=== PATIENT | male | born 1955 | race African-American/Black ===

== ENCOUNTER 2017-03-06 14:20 | Inpatient (IN) | payer OTHER ==
--- NOTE | ~2017-03-06 | PA ---
Unit #: [id number] #: [id number] Patient: ABBE FLORES [id number] [facility] [address] [place] [address] [id number] MR#: [id number] NAME: ABBE FLORES ROOM: [facility] Age: 61 Sex: M Admission Date: 03/06/2017 : 1955 Date of Assessment: 03/07/2017 Attending Physician: Francisco Santana M.D. Admitting Physician: Francisco Santana M.D. Primary Care Physician: Primary Care Physician No PSYCHIATRIC ASSESSMENT DATE OF ASSESSMENT 03/07/2017. INFORMANTS The patient, reliable; OLOP, reliable. CHIEF COMPLAINT Alcohol and heroin use and suicidal ideation. HISTORY OF PRESENT ILLNESS Mr. Flores is a 61-year-old man with a history of polysubstance dependence. He reports that "life is not going right" and he is relapsing on alcohol and drugs. He says that his relapse on alcohol, "set everything off" and he has been drinking a pint of scott daily with the last drink the day prior to admission. He has also begun using heroin IV and has been using daily. He was unable to contract for safety and was admitted for stabilization. PAST PSYCHIATRIC HISTORY Last admission in 06/2016 as well as previous admission at [facility]. FAMILY PSYCHIATRIC HISTORY None reported. SOCIAL HISTORY The patient reported no history of childhood abuse or neglect. He has been incarcerated in the past for charges including robbery and manslaughter. He is currently erratically housed and occasionally stays at homeless shelters. He has minimal psychosocial support. PAST MEDICAL HISTORY Hypertension, low back pain, and hepatitis C. MEDICATIONS Please see MAR. ALLERGIES Aspirin. SUBSTANCE USE HISTORY As noted, the patient has an extensive history of chemical dependence and is currently abusing both alcohol and opioids. Unit #: [id number] #: [id number] Patient: ABBE FLORES MENTAL STATUS EXAMINATION Mr. Flores presented as a disheveled man, who appeared older than his stated age. He stood 5 feet 7 inches tall and weighed 145 pounds. Vital signs; temperature 97.7, pulse 60, respirations 17, and blood pressure 150/86. His speech was soft and spontaneous, but he was fully cooperative with the examination. Musculoskeletal examination demonstrated psychomotor agitation. His mood was depressed and irritable with a congruent affect. He was alert and fully oriented. His memory and concentration were fair to good. His thought processes were logical with no active psychosis. He reported dysphoria and suicidal ideation, but contracted for safety in the hospital. Insight and judgment were fair. Fund of knowledge and abstraction, fair. ASSETS AND LIABILITIES The patient is familiar with local resources and is presenting voluntarily for treatment. Liabilities include unstable housing, unstable support, and relapse. ADMITTING DIAGNOSES AXIS I: Alcohol dependence withdrawal, uncomplicated, F10.230; history of opioid dependence; substance-induced mood disorder, depressed. AXIS II: No diagnosis. AXIS III: Hypertension, active alcohol withdrawal. AXIS IV: AXIS V: PSYCHIATRIC PLAN The patient was admitted and placed on suicide precautions and the alcohol detox protocol. His home medications will be explored and restarted. He will have a physical examination and baseline laboratory studies. TREATMENT GOALS Resolution of intoxication, establishment of sobriety, resolution of SI, improvement in insight, and improvement in coping skills. DISCHARGE PLANNING Follow up with community mental health, chemical dependence, and psychiatric treatment resources. ESTIMATED LENGTH OF STAY 5 days. Dictated by... Francisco Santana M.D. [facility]/setwart TD: 03/07/2017 19:58 JOB #: [id number] Unit #: [id number] #: [id number] Patient: ABBE FLORES PSYCHIATRIC ASSESSMENT Page 1 of 1 X Francisco Santana MD X PSYCHIATRIC ASSESSMENT
--- NOTE | ~2017-03-06 | PN ---
Unit #: [id number] #: [id number] Patient: ABBE SHARMA [id number] [facility] [address] [place] [address] [id number] MR#: [id number] NAME: ABBE SHARMA ROOM: [facility] Age: 61 Sex: M Admission Date: 03/06/2017 : 1955 Attending Physician: Francisco Santana M.D. Admitting Physician: Francisco Santana M.D. Primary Care Physician: Primary Care Physician Leanna REES PROGRESS NOTES DATE OF SERVICE 03/08/2017 DISCUSSION Mr. Sharma continues to have active detox symptoms today. His mood is dysphoric and irritable with a congruent affect. He is alert and fully oriented with no psychosis. He continues to report some SI. ASSESSMENT Alcohol dependence, major depression. PLAN Continue current treatment plan. Dictated by... Jemma Galdamez/michelle TD: 03/09/2017 04:18 JOB #: [id number] [facility] PROGRESS NOTES Page 1 of 1 X Francisco Santana MD PROGRESS NOTE
--- NOTE | ~2017-03-06 | PN ---
Unit #: [id number] #: [id number] Patient: ABBE FLORES [id number] [facility] [address] [place] [address] [id number] I MR#: [id number] NAME: ABBE FLORES ROOM: [facility] Age: 61 Sex: M Admission Date: 03/06/2017 : 1955 Attending Physician: Francisco Santana M.D. Admitting Physician: Francisco Santana M.D. Primary Care Physician: Primary Care Physician Leanna REES PROGRESS NOTES DATE 03/09/2017 DISCUSSION Mr. Flores continues to have active withdrawal symptoms today. His mood is depressed with a downcast affect. He is alert and fully oriented with no psychosis. He continues to endorse suicidal ideation. ASSESSMENT 1. Alcohol dependence. 2. Opiate dependence. 3. Substance-induced mood disorder. PLAN Continue current treatment plan. Dictated by... Francisco Santana M.D. [facility]/bzg TD: 03/10/2017 08:36 JOB #: [id number] [facility] PROGRESS NOTES Page 1 of 1 X Francisco Santana MD PROGRESS NOTE
--- NOTE | ~2017-03-06 | PN ---
Unit #: [id number] #: [id number] Patient: ABBE FLORES [id number] [facility] [address] [place] [address] [id number] I MR#: [id number] NAME: ABBE FLORES ROOM: [facility]0 Age: 61 Sex: M Admission Date: 03/06/2017 : 1955 Attending Physician: Francisco Santana M.D. Admitting Physician: Francisco Santana M.D. Primary Care Physician: Primary Care Physician No TAURUSCE PROGRESS NOTES DATE 03/10/2017 DISCUSSION Abbe continues to have [id number] detox symptoms today. His mood is a little brighter with a brighter range of affect. He is alert and fully oriented. His memory and concentration are fair to good. His thought processes are goal directed with no active psychosis. ASSESSMENT 1. Polysubstance dependence. 2. Bipolar depressed. PLAN Continue current treatment plan, anticipating discharge soon. Dictated by... Jemma GaldamezH/bzg TD: 03/14/2017 09:22 JOB #: [id number] [facility] PROGRESS NOTES Page 1 of 1 X Francisco Santana MD PROGRESS NOTE
--- NOTE | ~2017-03-06 | DS ---
Unit #: [id number] #: [id number] Patient: ABBE FLORES [id number] [facility] [address] [place] [address] [id number] I MR#: [id number] NAME: ABBE FLORES ROOM: [facility] Age: 61 Sex: M Admission Date: 03/06/2017 : 1955 Discharge Date: 03/11/2017 Attending Physician: Francisco Santana M.D. Primary Care Physician: Primary Care Physician No DISCHARGE SUMMARY REASON FOR ADMISSION Abbe is a 61-year-old man with history of polysubstance dependence who reports a relapse on alcohol which also triggered the use of IV heroin. He was unable to contract for safety and was admitted for stabilization. DIAGNOSTIC STUDIES LABORATORY DATA: UDS was positive for benzodiazepines, cocaine, marijuana, and opiates. HOSPITAL COURSE Mr. Flores was admitted and placed on the alcohol detox protocol and suicide precautions. Neurontin was restarted for home medications. He had an uneventful period of detox and was generally quiet and isolative during the hospitalization, coming out rarely to interface with peers and staff. On the date of discharge, he completed detox and contracted for safety. DISCHARGE DIAGNOSES AXIS I: Alcohol dependence with withdrawal, uncomplicated. History of opiate dependence. Substance-induced mood disorder, depressed. AXIS II: No diagnosis. AXIS III: Hypertension. INSTRUCTIONS The patient to follow up with community mental health and primary care physician. DISCHARGE MEDICATIONS 1. Neurontin 400 mg q.i.d. for pain. 2. Norvasc 10 mg daily for hypertension. 3. Trazodone 200 mg at bedtime as needed for insomnia. CONDITION ON DISCHARGE Fair. PROGNOSIS Fair. DIET AND ACTIVITY Per primary care doctor. Unit #: [id number] #: [id number] Patient: ABBE FLORES Dictated by... Francisco Santana M.D. [facility]/bzg TD: 03/12/2017 07:35 JOB #: [id number] DISCHARGE SUMMARY Page 1 of 1 X Francisco Santana MD X DISCHARGE SUMMARY
[2017-03-08 11:48] LABS: AMPHETAMINE NEG (NEG); BARBITURATES NEG (NEG); BENZODIAZEPINES POS (NEG); COCAINE POS (NEG); MARIJUANA POS (NEG); OPIATES POS (NEG); TRICYCLIC ANTIDEPRESSANTS NEG (NEG); U METHADONE NEG (NEG)
== END 2017-03-11 11:28 | DRG 897 ==
LOC: P2S 14:20
PROVIDERS: Psychiatry & Neurology Psychiatry
PROC: HZ2ZZZZ Detoxification Services for Substance Abuse Treatment (ICD-10-PCS; principal; 2017-03-06)
DX: F10.239 Alcohol dependence with withdrawal, unspecified (principal); F11.20 Opioid dependence, uncomplicated; F10.24 Alcohol dependence with alcohol-induced mood disorder
CPT/HCPCS: 80307